=== PATIENT | female | born 1985 | race Two or more races ===

== ENCOUNTER 2016-09-03 12:19 | Emergency (ER) | payer OTHER ==
[~2016-09-03] VITALS: Ht 167.6 cm; Wt 108.0 kg
[~2016-09-03 12:19] MED LIST: NO REPORTABLE MEDS
[2016-09-03 12:38] VITALS: BP 146/99
== END 2016-09-03 14:00 | disposition home or self-care (01) ==
LOC: ER 12:21
DX: L03.211 Cellulitis of face (principal); J03.90 Acute tonsillitis, unspecified
CPT/HCPCS: 99283; A4606; Z7610

== ENCOUNTER 2016-11-13 18:14 | Emergency (ER) | payer OTHER ==
[~2016-11-13] VITALS: Ht 162.6 cm; Wt 112.0 kg
--- NOTE | 2016-11-13 18:20 | NUR ---
PT CAME IN FOR N/V, CHEST TIGHTNESS. DENIES FEVER, DIARRHEA. NAD NOTED. VSS. SEEN BY MD FOR EVAL. SAFETY AND COMFORT MEASURES PROVIDED. URINE SAMPLE OBTAINED. WILL MONITOR.
[2016-11-13 18:54] LABS: APPEARANCE,URINE Clear (CLEAR); BILIRUBIN,URINE Negative (NEGATIVE); BLOOD, URINE Negative Ery/uL (NEGATIVE); COLOR,URINE Yellow (YELLOW); KETONES,URINE Negative (NEGATIVE); LEUKOCYTE ESTERASE ,URINE Negative (NEGATIVE); NITRITE, URINE Negative (NEGATIVE); PH,URINE 5.5 (5.0-8.0); PROTEIN,URINE Trace mg/dl (NEGATIVE); UGLUCOSE Negative (NEGATIVE); UROBILINOGEN,URINE 0.2 EU/dL (0.2)
[2016-11-13] MEDS ORDERED: ONDANSETRON 4 MG TAB.RAPDIS SL ONE (19:00)
[2016-11-13 19:03] LABS: BASOPHILS % (AUTO) 0.5 % (0.0-2.0); EOSINOPHILS # (AUTO) 0.1 /CMM (0.0-0.7); HEMATOCRIT 39 % (33-45); HEMOGLOBIN 12.8 g/dL (11.5-14.8); LYMPHOCYTES # (AUTO) 2.5 /CMM (0.8-4.8); MEAN CORPUSCULAR HEMOGLOBIN 27 PG (26.0-33.0); MEAN CORPUSCULAR HGB CONC 33 g/dl (31.0-36.0); MEAN CORPUSCULAR VOLUME 81 fL (82-100); MONOCYTES # (AUTO) 0.4 /CMM (0.1-1.30); MONOCYTES % (AUTO) 4.2 % (2.0-12.0); NEUTROPHILS # (AUTO) 6.6 /CMM (1.8-8.9); NEUTROPHILS % (AUTO) 68.3 % (43.0-81.0); PLATELET COUNT (AUTO) 456 /CMM (150-450); RDW COEFFICIENT OF VARIATION 13.3 (11.5-15.0); RED BLOOD CELL COUNT(AUTO) 4.78 MIL/uL (4.0-5.2); WHITE BLOOD COUNT (AUTO) 9.6 K/uL (4.3-11.0)
--- NOTE | 2016-11-13 19:04 | NUR ---
SIENNA DONE AT BS.
[2016-11-13] MEDS ORDERED: ONDANSETRON 4 MG TAB.RAPDIS ONE (19:06)
[2016-11-13 19:07] LABS: PREGNANCY TEST URINE QUAL NEG (NEGATIVE)
[2016-11-13 19:13] LABS: ADD URINE CULTURE YES; BACTERIA,URINE Moderate /HPF (None Seen); RBC,URINE NONE SEEN /HPF (0-2); SQUAMOUS EPITHELIAL CELL,UR Many /HPF (None Seen); WBC,URINE 0-2 /HPF (0-3)
[2016-11-13 19:32] LABS: CALCIUM, SERUM 8.8 mg/dL (8.5-10.1); CREATININE 0.9 mg/dL (0.6-1.3); POTASSIUM 3.6 mmol/L (3.5-5.1)
[2016-11-13 19:37] LABS: ALBUMIN 3.6 g/dL (3.4-5.0); BILIRUBIN,DIRECT 0.1 mg/dL (0.0-0.2); BILIRUBIN,TOTAL 0.4 mg/dL (0.2-1.0); TOTAL PROTEIN, SERUM 7.1 g/dL (6.4-8.2)
[2016-11-13 19:47] VITALS: BP 136/88
--- NOTE | 2016-11-13 19:47 | NUR ---
Patient discharged to home in stable condition. Written and verbal after care instructions given. Patient verbalizes understanding of instruction. PT ambulatory with a steady gait VITAL SIGNS WITHIN NORMAL LIMITS.
== END 2016-11-13 19:48 | disposition home or self-care (01) ==
LOC: ER 18:16
DX: R11.2 Nausea with vomiting, unspecified (principal); F10.20 Alcohol dependence, uncomplicated
CPT/HCPCS: 36415; 76705; 80048; 80076; 81001; 83690; 84703; 85025; 87086; 99285; A4606; Q0162; Z7610; 81000-TC

== ENCOUNTER 2017-01-08 01:31 | Emergency (ER) | payer OTHER ==
[~2017-01-08] VITALS: Ht 162.6 cm; Wt 108.9 kg
--- NOTE | 2017-01-08 01:48 | NUR ---
31 YO FEMALE BB SLF. PT IS ALERT X 3, C/O RIGHT FLANK PAIN GOING DOWN TO LOWER ABD. PT STATES THE PAIN IS 10/10 STARTIGN THIS MORNING. URINE SAMPLE OBTAINED AND SENT TO LAB. PT URINE SAMPLE OBTAINED AND SENT TO LAB. PT GOWNED, PLACED ON ORCHESTRA MUSICIAN. KSIN WARM AND DR, RR EVEN AND UNLABORED. AWAITING ORDERS FROM PROVIDER
[2017-01-08] MEDS ORDERED: HYDROMORPHONE 1 MG/1 ML DISP.SYRIN ONE (02:11)
[2017-01-08] MEDS ORDERED: KETOROLAC TROMETHAMINE 15 MG/ML VIAL ONE (02:11)
[2017-01-08] MEDS ORDERED: ONDANSETRON HCL/PF 4 MG/2 ML VIAL ONE (02:11)
--- NOTE | 2017-01-08 02:26 | NUR ---
20G LEFT AC IV STARTED, BLOOD SAMPLE OBTAINED AND SENT TO LAB. MEDICATED PT ORDERED
[2017-01-08 02:27] LABS: BASOPHILS # (AUTO) 0.1 /CMM (0.0-0.2); BASOPHILS % (AUTO) 0.5 % (0.0-2.0); EOSINOPHILS # (AUTO) 0.1 /CMM (0.0-0.7); EOSINOPHILS % (AUTO) 0.9 % (0.0-6.0); HEMATOCRIT 39 % (33-45); HEMOGLOBIN 13.1 g/dL (11.5-14.8); LYMPHOCYTES % (AUTO) 19.9 % (20.0-44.0); MEAN CORPUSCULAR HEMOGLOBIN 28 PG (26.0-33.0); MEAN CORPUSCULAR HGB CONC 34 g/dl (31.0-36.0); MEAN CORPUSCULAR VOLUME 82 fL (82-100); MONOCYTES # (AUTO) 0.7 /CMM (0.1-1.30); MONOCYTES % (AUTO) 6.4 % (2.0-12.0); NEUTROPHILS # (AUTO) 7.4 /CMM (1.8-8.9); NEUTROPHILS % (AUTO) 72.3 % (43.0-81.0); PLATELET COUNT (AUTO) 441 /CMM (150-450); RDW COEFFICIENT OF VARIATION 13.8 (11.5-15.0); RED BLOOD CELL COUNT(AUTO) 4.75 MIL/uL (4.0-5.2); WHITE BLOOD COUNT (AUTO) 10.2 K/uL (4.3-11.0)
[2017-01-08 02:27] LABS: APPEARANCE,URINE CLEAR (CLEAR); BILIRUBIN,URINE NEGATIVE (NEGATIVE); BLOOD, URINE TRACE-INTA Ery/uL (NEGATIVE); COLOR,URINE YELLOW (YELLOW); KETONES,URINE NEGATIVE (NEGATIVE); LEUKOCYTE ESTERASE ,URINE NEGATIVE (NEGATIVE); NITRITE, URINE NEGATIVE (NEGATIVE); PH,URINE 6.5 (5.0-8.0); PROTEIN,URINE NEGATIVE (NEGATIVE); UGLUCOSE NEGATIVE (NEGATIVE); UROBILINOGEN,URINE 0.2 EU/dL (0.2)
[2017-01-08 02:29] LABS: PREGNANCY TEST URINE QUAL NEGATIVE (NEGATIVE)
[2017-01-08] MEDS ORDERED: HYDROMORPHONE INJ 2 MG/ML DISP.SYRIN IV ONE (02:30)
[2017-01-08] MEDS ORDERED: KETOROLAC TROMETHAMINE INJ 30 MG/ML VIAL IV ONE (02:30)
[2017-01-08] MEDS ORDERED: ONDANSETRON HCL/PF 4 MG/2 ML VIAL IVP ONE (02:30)
[2017-01-08] MEDS ORDERED: IV NS 0.9% 1,000 ML BAG IV ONE (02:30)
[2017-01-08 02:33] LABS: BACTERIA,URINE None seen /HPF (None Seen); RBC,URINE 0-2 /HPF (0-2); SQUAMOUS EPITHELIAL CELL,UR Rare /HPF (None Seen); WBC,URINE 0-2 /HPF (0-3)
[2017-01-08 02:37] LABS: CALCIUM, SERUM 8.9 mg/dL (8.5-10.1); POTASSIUM 3.8 mmol/L (3.5-5.1)
[2017-01-08 02:42] LABS: ALBUMIN 3.7 g/dL (3.4-5.0); BILIRUBIN,DIRECT 0.1 mg/dL (0.0-0.2); BILIRUBIN,TOTAL 0.3 mg/dL (0.2-1.0); TOTAL PROTEIN, SERUM 7.8 g/dL (6.4-8.2)
--- NOTE | 2017-01-08 03:17 | NUR ---
PT STATES SHE IS PAIN FREE AT THIS TIME. NOTIFED
[2017-01-08] MEDS ORDERED: AZITHROMYCIN 250 MG TABLET PO ONE (04:30)
[2017-01-08] MEDS ORDERED: AZITHROMYCIN 250 MG TABLET ONE (04:34)
[2017-01-08 04:46] VITALS: BP 129/90
--- NOTE | 2017-01-08 04:46 | NUR ---
Patient discharged to home in stable condition. Written and verbal after care instructions given. Patient verbalizes understanding of instruction. PT ambulatory with a steady gait VITAL SIGNS WITHIN NORMAL LIMITS.IV removed. Catheter intact and site benign. Pressure and 4x4 applied to site. No bleeding noted.
[2017-01-10 19:13] LABS: *NEISSERIA GONORRHOEAE NAA Negative (Negative); CHLAMYDIA TRACHOMATIS NAA Negative (Negative)
== END 2017-01-08 04:20 | disposition home or self-care (01) ==
LOC: ER 01:31
DX: M54.5 Low back pain (principal); R30.0 Dysuria; K21.9 Gastro-esophageal reflux disease without esophagitis; F10.20 Alcohol dependence, uncomplicated
CPT/HCPCS: 36415; 72128; 74176; 80048; 80076; 81001; 83690; 84703; 85025; 87491; 87591; 96361; 96374; 96375; 99285; A4606; J1170; J1885; J2405; J7030; J7040; Z7610; 81000-TC

== ENCOUNTER 2017-02-10 11:13 | Emergency (ER) | payer OTHER ==
[~2017-02-10] VITALS: Ht 162.6 cm; Wt 104.8 kg
[2017-02-10] MEDS ORDERED: IV NS 0.9% 1,000 ML BAG IV ONE (11:30)
[2017-02-10] MEDS ORDERED: SUMATRIPTAN SUCCINATE 6 MG/0.5 ML VIAL SQ ONE ×2 (11:30→11:34)
[2017-02-10] MEDS ORDERED: PROCHLORPERAZINE EDISYLATE 10 MG/2 ML VIAL IV ONE (11:30)
[2017-02-10] MEDS ORDERED: KETOROLAC TROMETHAMINE INJ 30 MG/ML VIAL IV ONE (11:30)
[2017-02-10] MEDS ORDERED: PROCHLORPERAZINE EDISYLATE 10 MG/2 ML VIAL ONE (11:34)
[2017-02-10] MEDS ORDERED: KETOROLAC TROMETHAMINE INJ 30 MG/ML VIAL ONE (11:34)
--- NOTE | 2017-02-10 11:37 | NUR ---
URINE SAMPLE COLLECTED SENT TO LAB
--- NOTE | 2017-02-10 11:40 | NUR ---
IV ACCESS STARTED. BLOOD DRAWN FOR LABS. PT MEDICATED ORDERED.
[2017-02-10 11:47] LABS: BASOPHILS % (AUTO) 0.4 % (0.0-2.0); EOSINOPHILS # (AUTO) 0.1 /CMM (0.0-0.7); EOSINOPHILS % (AUTO) 1.1 % (0.0-6.0); HEMATOCRIT 44 % (33-45); HEMOGLOBIN 14.5 g/dL (11.5-14.8); LYMPHOCYTES # (AUTO) 1.9 /CMM (0.8-4.8); LYMPHOCYTES % (AUTO) 22.3 % (20.0-44.0); MEAN CORPUSCULAR HEMOGLOBIN 27 PG (26.0-33.0); MEAN CORPUSCULAR HGB CONC 33 g/dl (31.0-36.0); MEAN CORPUSCULAR VOLUME 82 fL (82-100); MONOCYTES # (AUTO) 0.2 /CMM (0.1-1.30); MONOCYTES % (AUTO) 2.4 % (2.0-12.0); NEUTROPHILS # (AUTO) 6.5 /CMM (1.8-8.9); NEUTROPHILS % (AUTO) 73.8 % (43.0-81.0); PLATELET COUNT (AUTO) 429 /CMM (150-450); RDW COEFFICIENT OF VARIATION 12.8 (11.5-15.0); WHITE BLOOD COUNT (AUTO) 8.7 K/uL (4.3-11.0)
[2017-02-10 11:49] LABS: APPEARANCE,URINE Clear (CLEAR); BILIRUBIN,URINE Negative (NEGATIVE); BLOOD, URINE Negative Ery/uL (NEGATIVE); COLOR,URINE Yellow (YELLOW); KETONES,URINE Negative (NEGATIVE); LEUKOCYTE ESTERASE ,URINE Negative (NEGATIVE); NITRITE, URINE Negative (NEGATIVE); PH,URINE 6.5 (5.0-8.0); PROTEIN,URINE Negative (NEGATIVE); UGLUCOSE Negative (NEGATIVE); UROBILINOGEN,URINE 0.2 EU/dL (0.2)
[2017-02-10 11:58] LABS: CALCIUM, SERUM 8.8 mg/dL (8.5-10.1); CREATININE 0.8 mg/dL (0.6-1.3); POTASSIUM 4.1 mmol/L (3.5-5.1)
[2017-02-10 12:06] LABS: PREGNANCY TEST URINE QUAL NEGATIVE (NEGATIVE)
--- NOTE | 2017-02-10 12:29 | NUR ---
Patient discharged to home in stable condition. Written and verbal after care instructions given. Patient verbalizes understanding of instruction.
--- NOTE | 2017-02-10 12:29 | NUR ---
IV removed. Catheter intact and site benign. Pressure and 4x4 applied to site. No bleeding noted.
[2017-02-10 12:30] VITALS: BP 128/85
== END 2017-02-10 12:32 | disposition home or self-care (01) ==
LOC: ER 11:19
DX: R51 Headache (principal); K21.9 Gastro-esophageal reflux disease without esophagitis; Z87.440 Personal history of urinary (tract) infections
CPT/HCPCS: 36415; 80048; 81001; 84703; 85025; 96361; 96372; 96374; 96375; 99284; A4606; J0780; J1885; J3030; J7030; Z7610; 81000-TC

== ENCOUNTER 2017-03-27 14:43 | Emergency (ER) | payer SELFPAY ==
[~2017-03-27] VITALS: Ht 162.6 cm; Wt 105.7 kg
[2017-03-27 15:00] VITALS: BP 156/104
== END 2017-03-27 16:52 | disposition home or self-care (01) ==
LOC: ER 14:45
DX: S30.0XXA Contusion of lower back and pelvis, initial encounter (principal); K21.9 Gastro-esophageal reflux disease without esophagitis; X58.XXXA Exposure to other specified factors, initial encounter; Y92.89 Other specified places as the place of occurrence of the external cause; Y93.89 Activity, other specified; Y99.8 Other external cause status
CPT/HCPCS: 72220; 99284; A4606; Z7610

== ENCOUNTER 2017-05-20 16:29 | Emergency (ER) | payer SELFPAY ==
[~2017-05-20] VITALS: Ht 162.6 cm; Wt 108.9 kg
--- NOTE | 2017-05-20 17:15 | NUR ---
PRESENTS TO ER C/O ABD PAIN W/ NAUSEA, DIARRHEA, HEADACHE X 1 WK. A/OX 4. BREATHING EVEN AND UNLABORED. NO SOB. VITALS STABLE. SAFETY AND COMFORT MEASURES IN PLACE. AWAITING MD ORDERS.
--- NOTE | 2017-05-20 17:30 | NUR ---
AT BEDSIDE FOR EVAL.
--- NOTE | 2017-05-20 18:01 | NUR ---
CALLED US TECH ETA 30 MINUTES
--- NOTE | 2017-05-20 18:34 | NUR ---
US TECH AT BEDSIDE.
--- NOTE | 2017-05-20 19:15 | NUR ---
Patient discharged to home in stable condition. Written and verbal after care instructions given. Patient verbalizes understanding of instruction.
[2017-05-20 19:27] VITALS: BP 138/82
== END 2017-05-20 19:27 | disposition home or self-care (01) ==
LOC: ER 16:31
DX: R19.7 Diarrhea, unspecified (principal); R10.30 Lower abdominal pain, unspecified; M79.89 Other specified soft tissue disorders; K21.9 Gastro-esophageal reflux disease without esophagitis
CPT/HCPCS: 93971; 99284; A4606; Z7610

== ENCOUNTER 2018-10-05 20:18 | Emergency (ER) | payer OTHER ==
[~2018-10-05] VITALS: Ht 162.6 cm; Wt 117.9 kg
--- NOTE | 2018-10-05 20:30 | NUR ---
PT BIBSELF C/O PRODUCTIVE COUGH X1 WEEK. COUGH CAUSED 1 EPISODE OF VOMITTING YESTERDAY. DENIES FEVER, SOB, CHEST PAIN. PT AAOX4. RESPIRATIONS EVEN AND UNLABORED. SKIN WARM AND INTACT. NO ACUTE DISTRESS NOTED AT THIS TIME.
[2018-10-05] MEDS ORDERED: ONDANSETRON 4 MG TAB.RAPDIS ONE ×2 (21:20→21:23)
--- NOTE | 2018-10-05 21:20 | NUR ---
[employer] AT BEDSIDE FOR BLOOD DRAW
--- NOTE | 2018-10-05 21:21 | NUR ---
ZOFRAN ODT FELL ON FLOOR, GOT ANOTHER ZOFRAN ODT FROM [facility]
[2018-10-05] MEDS ORDERED: ONDANSETRON 4 MG TAB.RAPDIS SL ONE (21:30)
[2018-10-05] MEDS ORDERED: IPRATROPIUM NEB FS 0.5 MG/2.5 ML AMPUL.NEB NEB ONE (21:30)
[2018-10-05] MEDS ORDERED: ALBUTEROL FS 2.5 MG/3 ML VIAL.NEB NEB ONE (21:30)
[2018-10-05 21:31] LABS: BASOPHILS # (AUTO) 0.1 /CMM (0.0-0.2); BASOPHILS % (AUTO) 0.9 % (0.0-2.0); HEMATOCRIT 40 % (33-45); HEMOGLOBIN 13.6 g/dL (11.5-14.8); LYMPHOCYTES # (AUTO) 2.6 /CMM (0.8-4.8); LYMPHOCYTES % (AUTO) 23.1 % (20.0-44.0); MEAN CORPUSCULAR HGB CONC 34 g/dl (31.0-36.0); MEAN CORPUSCULAR VOLUME 81 fL (82-100); MONOCYTES # (AUTO) 0.4 /CMM (0.1-1.30); MONOCYTES % (AUTO) 3.7 % (2.0-12.0); NEUTROPHILS % (AUTO) 71.3 % (43.0-81.0); PLATELET COUNT (AUTO) 455 /CMM (150-450); RED BLOOD CELL COUNT(AUTO) 4.96 MIL/uL (4.0-5.2); WHITE BLOOD COUNT (AUTO) 11.2 K/uL (4.3-11.0)
--- NOTE | 2018-10-05 21:32 | NUR ---
RADIOLOGY AT BEDSIDE FOR CXR
[2018-10-05 21:41] LABS: CALCIUM, SERUM 8.8 mg/dL (8.5-10.1); CREATININE 1.2 mg/dL (0.6-1.3); POTASSIUM 3.6 mmol/L (3.5-5.1)
[2018-10-05] MEDS ORDERED: ALBUTEROL FS 2.5 MG/3 ML VIAL.NEB ONE (21:46)
[2018-10-05] MEDS ORDERED: IPRATROPIUM NEB FS 0.5 MG/2.5 ML AMPUL.NEB ONE (21:46)
--- NOTE | 2018-10-05 21:50 | NUR ---
RT AT BEDSIDE
--- NOTE | 2018-10-05 22:33 | NUR ---
Patient discharged to home in stable condition. Written and verbal after care instructions given. Patient verbalizes understanding of instruction. Pt ambulatory with a steady gait
[2018-10-05 22:35] VITALS: BP 139/89
== END 2018-10-05 22:36 | disposition home or self-care (01) ==
LOC: ER 20:21
DX: J06.9 Acute upper respiratory infection, unspecified (principal); R07.89 Other chest pain; K21.9 Gastro-esophageal reflux disease without esophagitis; E11.9 Type 2 diabetes mellitus without complications; F10.10 Alcohol abuse, uncomplicated; R00.0 Tachycardia, unspecified; Y90.9 Presence of alcohol in blood, level not specified
CPT/HCPCS: 36415; 71045; 80048; 85025; 85378; 93005 ×2; 94640; 99284; Q0162 ×2

== ENCOUNTER 2018-12-24 22:46 | Emergency (ER) | payer MEDICAID, OTHER ==
--- NOTE | 2018-12-25 00:14 | NUR ---
CALLED PT THREE TIMES IN WAITING ROOM. NO RESPONSE.
--- NOTE | 2018-12-25 00:29 | NUR ---
CALLED PT NAME IN WR, NO ONE ANSWERED. PER ADMITTING PT LEFT.
== END 2018-12-25 00:31 | disposition left against medical advice (07) ==
LOC: ER 22:50
DX: Z53.21 Procedure and treatment not carried out due to patient leaving prior to being seen by health care provider (principal)

== ENCOUNTER 2019-05-27 19:33 | Emergency (ER) | payer MEDICAID, OTHER ==
[~2019-05-27] VITALS: Ht 165.1 cm; Wt 120.2 kg
[2019-05-27 20:33] LABS: BASOPHILS % (AUTO) 0.3 % (0.0-2.0); EOSINOPHILS % (AUTO) 0.5 % (0.0-6.0); HEMATOCRIT 40 % (33-45); LYMPHOCYTES # (AUTO) 1.9 /CMM (0.8-4.8); LYMPHOCYTES % (AUTO) 16.4 % (20.0-44.0); MEAN CORPUSCULAR HGB CONC 32 g/dl (31.0-36.0); MEAN CORPUSCULAR VOLUME 80 fL (82-100); MONOCYTES # (AUTO) 0.5 /CMM (0.1-1.30); MONOCYTES % (AUTO) 4.6 % (2.0-12.0); NEUTROPHILS % (AUTO) 78.2 % (43.0-81.0); PLATELET COUNT (AUTO) 434 /CMM (150-450); WHITE BLOOD COUNT (AUTO) 11.6 K/uL (4.3-11.0)
--- NOTE | 2019-05-27 20:33 | NUR ---
BIBSELF FROM HOME TO ER BED 9. AAOX4. NO RESP DISTRESS NOTED. AMBULATORY. C/O LUQ ABDOMINAL PAIN RADIATING TO RUQ. PT REPORTS THE PAIN STARTED THIS MORNIGN AT 10AM. PAIN IS REPORTED /. SHARP AND TIGHT FEELING. PT DENIES NAUSEA AND VOMMITING BUT REPORTS DIARRHEA X 8 EPISODE SINCE YESTERDAY. MD AT BEDSIDE FOR EVAL. ORDERS RECEIVED, NOTED AND CARRIED OUT
[2019-05-27] MEDS ORDERED: ONDANSETRON HCL/PF 4 MG/2 ML VIAL ONE (20:46)
[2019-05-27] MEDS ORDERED: MORPHINE SULFATE INJ 2 MG/ML DISP.SYRIN ONE (20:47)
[2019-05-27] MEDS: MORPHINE SULFATE INJ 2 MG/ML DISP.SYRIN IV ONE (20:54)
[2019-05-27] MEDS: ONDANSETRON HCL/PF - ER 4 MG/2 ML VIAL IV ONE (20:54)
[2019-05-27 21:15] LABS: ALBUMIN 3.6 g/dL (3.4-5.0); BILIRUBIN,DIRECT 0.1 mg/dL (0.0-0.2); BILIRUBIN,TOTAL 0.6 mg/dL (0.2-1.0); CALCIUM, SERUM 9.8 mg/dL (8.5-10.1); CREATININE 0.9 mg/dL (0.6-1.3); POTASSIUM 4.6 mmol/L (3.5-5.1)
[2019-05-27 21:39] LABS: APPEARANCE,URINE Clear (CLEAR); BILIRUBIN,URINE Negative (NEGATIVE); BLOOD, URINE Negative Ery/uL (NEGATIVE); COLOR,URINE Yellow (YELLOW); KETONES,URINE Negative (NEGATIVE); LEUKOCYTE ESTERASE ,URINE Negative (NEGATIVE); NITRITE, URINE Negative (NEGATIVE); PROTEIN,URINE Negative (NEGATIVE); UGLUCOSE Negative (NEGATIVE); UROBILINOGEN,URINE 0.2 EU/dL (0.2)
[2019-05-27 22:03] VITALS: BP 141/85
--- NOTE | 2019-05-27 22:03 | NUR ---
Patient discharged to home in stable condition. Written and verbal after care instructions given. Patient verbalizes understanding of instruction.IV removed. Catheter intact and site benign. Pressure and 4x4 applied to site. No bleeding noted. Pt ambulatory with a steady gait
== END 2019-05-27 22:06 | disposition home or self-care (01) ==
LOC: ER 19:38
DX: R10.11 Right upper quadrant pain (principal); R10.13 Epigastric pain; R19.7 Diarrhea, unspecified; E03.9 Hypothyroidism, unspecified; K21.9 Gastro-esophageal reflux disease without esophagitis; E11.9 Type 2 diabetes mellitus without complications; Z98.890 Other specified postprocedural states
CPT/HCPCS: 36415; 76705; 80048; 80076; 81001; 83690; 85025; 96374; 96375; 99284; J2270; J2405; 81000-TC

== ENCOUNTER 2019-07-25 16:14 | Emergency (ER) | payer OTHER ==
[~2019-07-25] VITALS: Ht 165.1 cm; Wt 115.7 kg
[2019-07-25 16:40] VITALS: BP 146/87
[2019-07-25] MEDS ORDERED: ACETAMINOPHEN 325 MG TABLET PO ONE (17:00)
[2019-07-25] MEDS ORDERED: IBUPROFEN 600 MG TABLET PO ONE ×2 (17:00→17:18)
[2019-07-25] MEDS ORDERED: ACETAMINOPHEN 325 MG TABLET ONE (17:18)
--- NOTE | 2019-07-25 18:28 | NUR ---
ORAL TEMP RECHECK 98.5
== END 2019-07-25 19:49 | disposition home or self-care (01) ==
LOC: ER 16:16
DX: R05 Cough (principal); R09.81 Nasal congestion; R07.89 Other chest pain; R51 Headache; J02.9 Acute pharyngitis, unspecified; K21.9 Gastro-esophageal reflux disease without esophagitis; E11.9 Type 2 diabetes mellitus without complications; E03.9 Hypothyroidism, unspecified; Z98.890 Other specified postprocedural states
CPT/HCPCS: 71045-TC

== ENCOUNTER 2023-09-21 02:31 | Emergency (ER) | payer SELFPAY ==
[~2023-09-21] VITALS: Ht 167.6 cm; Wt 81.6 kg
[2023-09-21] MEDS ORDERED: methylPREDNISolone SOD SUCC 125 MG/2ML VIAL ONE (03:15)
[2023-09-21] MEDS ORDERED: KETOROLAC TROMETHAMINE INJ 30 MG/ML VIAL ONE (03:15)
[2023-09-21] MEDS ORDERED: CYCLOBENZAPRINE 10 MG TABLET ONE (03:16)
[2023-09-21 03:27] LABS: BASOPHILS # (AUTO) 0.1 K/uL (0.0-0.2); BASOPHILS % (AUTO) 0.6 % (0.0-2.0); EOSINOPHILS # (AUTO) 0.1 K/uL (0.0-0.7); EOSINOPHILS % (AUTO) 0.7 % (0.0-6.0); HEMATOCRIT 42 % (33-45); HEMOGLOBIN 13.9 g/dL (11.5-14.8); LYMPHOCYTES # (AUTO) 2.8 K/uL (0.8-4.8); LYMPHOCYTES % (AUTO) 30.4 % (20.0-44.0); MEAN CORPUSCULAR HEMOGLOBIN 26 PG (26.0-33.0); MEAN CORPUSCULAR HGB CONC 33 g/dl (31.0-36.0); MEAN CORPUSCULAR VOLUME 80 fL (82-100); MONOCYTES # (AUTO) 0.4 K/uL (0.1-1.30); MONOCYTES % (AUTO) 4.9 % (2.0-12.0); NEUTROPHILS # (AUTO) 5.8 K/uL (1.8-8.9); NEUTROPHILS % (AUTO) 63.4 % (43.0-81.0); PLATELET COUNT (AUTO) 422 K/uL (150-450); RED BLOOD CELL COUNT(AUTO) 5.31 MIL/uL (4.0-5.2); RED CELL DISTRIBUTION WIDTH 14.8 % (11.5-15.0); WHITE BLOOD COUNT (AUTO) 9.1 K/uL (4.3-11.0)
[2023-09-21] MEDS: methylPREDNISolone SOD SUCC 125 MG/2ML VIAL IV ONE (03:33)
[2023-09-21] MEDS: CYCLOBENZAPRINE 10 MG TABLET PO ONE (03:33)
[2023-09-21] MEDS: KETOROLAC TROMETHAMINE INJ 30 MG/ML VIAL IV ONE (03:33)
[2023-09-21 03:36] LABS: PREGNANCY TEST URINE QUAL NEGATIVE (NEGATIVE)
[2023-09-21 03:36] LABS: CALCIUM, SERUM 8.9 mg/dL (8.5-10.1); CARBON DIOXIDE 28 mmol/L (21-32); CHLORIDE 103 mmol/L (98-107); GLUCOSE 104 mg/dL (74-106); POTASSIUM 3.5 mmol/L (3.5-5.1); SODIUM SERUM 136 mmol/L (136-145); UREA NITROGEN, BLOOD 13 mg/dL (7-18)
[2023-09-21 03:42] LABS: ALANINE AMINOTRANSFERASE 17 U/L (12-78); ALBUMIN 3.8 g/dL (3.4-5.0); ALKALINE PHOSPHATASE 61 U/L (46-116); ASPARTATE AMINOTRANSFERASE 10 U/L (15-37); BILIRUBIN,DIRECT 0.1 mg/dL (0.0-0.2); BILIRUBIN,TOTAL 0.5 mg/dL (0.2-1.0); TOTAL PROTEIN, SERUM 7.8 g/dL (6.4-8.2)
[2023-09-21 03:44] LABS: PARTIAL THROMBOPLASTIN TIME 31.8 SEC (24.3-34.3); PROTHROMBIN TIME 10.6 SECS (9.2-11.1)
[2023-09-21] MEDS ORDERED: IBUP-1957 PO (05:51)
[2023-09-21] MEDS ORDERED: CYCL10TA9 PO (05:51)
[2023-09-21] MEDS ORDERED: PRED50TA PO (05:51)
[2023-09-21 06:04] VITALS: BP 155/99; TEMP 98.3; O2SAT 97
== END 2023-09-21 06:05 | disposition home or self-care (01) ==
LOC: ER 02:45
DX: R07.89 Other chest pain (principal); M54.12 Radiculopathy, cervical region; M62.838 Other muscle spasm; E11.9 Type 2 diabetes mellitus without complications; E03.9 Hypothyroidism, unspecified; K21.9 Gastro-esophageal reflux disease without esophagitis; Z79.899 Other long term (current) drug therapy
CPT/HCPCS: 99285; 96374; 71045; 96375; 93005; 85025; 80048; 80076; 84703; 36415; 84484 ×2; 85730; J2930; J1885

== ENCOUNTER 2024-01-13 17:04 | Emergency (ER) | payer OTHER ==
[~2024-01-13] VITALS: Ht 167.6 cm; Wt 77.1 kg
[~2024-01-13 17:04] MED LIST changes: +CYCL10TA9 PO; +IBUP-1957 PO; +PRED50TA PO
[2024-01-13 17:51] LABS: BASOPHILS % (AUTO) 0.9 % (0.0-2.0); EOSINOPHILS # (AUTO) 0.1 K/uL (0.0-0.7); EOSINOPHILS % (AUTO) 1.2 % (0.0-6.0); HEMATOCRIT 40 % (33-45); HEMOGLOBIN 13.2 g/dL (11.5-14.8); LYMPHOCYTES # (AUTO) 0.7 K/uL (0.8-4.8); LYMPHOCYTES % (AUTO) 15.5 % (20.0-44.0); MEAN CORPUSCULAR HEMOGLOBIN 27 PG (26.0-33.0); MEAN CORPUSCULAR HGB CONC 33 g/dl (31.0-36.0); MEAN CORPUSCULAR VOLUME 80 fL (82-100); MONOCYTES # (AUTO) 0.5 K/uL (0.1-1.30); NEUTROPHILS # (AUTO) 3.2 K/uL (1.8-8.9); NEUTROPHILS % (AUTO) 71.4 % (43.0-81.0); PLATELET COUNT (AUTO) 317 K/uL (150-450); RED BLOOD CELL COUNT(AUTO) 4.94 MIL/uL (4.0-5.2); RED CELL DISTRIBUTION WIDTH 13.9 % (11.5-15.0); WHITE BLOOD COUNT (AUTO) 4.5 K/uL (4.3-11.0)
[2024-01-13 17:59] LABS: CALCIUM, SERUM 8.8 mg/dL (8.5-10.1); CARBON DIOXIDE 26 mmol/L (21-32); CHLORIDE 105 mmol/L (98-107); GLUCOSE 90 mg/dL (74-106); POTASSIUM 3.5 mmol/L (3.5-5.1); SODIUM SERUM 136 mmol/L (136-145); UREA NITROGEN, BLOOD 11 mg/dL (7-18)
[2024-01-13] MEDS ORDERED: ACETAMINOPHEN 325 MG TABLET ONE (18:49)
[2024-01-13] MEDS: ACETAMINOPHEN 325 MG TABLET PO ONE (18:58)
[2024-01-13] MEDS ORDERED: BENZ-13 PO (20:05)
[2024-01-13 20:13] VITALS: BP 140/99; TEMP 98.1; O2SAT 96
== END 2024-01-13 20:14 | disposition home or self-care (01) ==
LOC: ER 17:04
DX: J06.9 Acute upper respiratory infection, unspecified (principal); R05.9 Cough, unspecified; K21.9 Gastro-esophageal reflux disease without esophagitis; Z87.440 Personal history of urinary (tract) infections; E11.9 Type 2 diabetes mellitus without complications; E03.9 Hypothyroidism, unspecified; Z98.890 Other specified postprocedural states; Z79.1 Long term (current) use of non-steroidal anti-inflammatories (NSAID); Z79.52 Long term (current) use of systemic steroids; Z20.822 Contact with and (suspected) exposure to COVID-19
CPT/HCPCS: 36415; 71045-TC; 80048-TC; 84484-TC; 85025-TC

== ENCOUNTER 2024-03-04 08:49 | Emergency (ER) | payer OTHER ==
[~2024-03-04] VITALS: Ht 167.6 cm; Wt 77.1 kg
[~2024-03-04 08:49] MED LIST changes: +BENZ-13 PO
[2024-03-04 09:10] VITALS: TEMP 98.6
[2024-03-04 09:29] LABS: BASOPHILS % (AUTO) 0.1 % (0.0-2.0); EOSINOPHILS % (AUTO) 0.1 % (0.0-6.0); HEMATOCRIT 42 % (33-45); HEMOGLOBIN 13.8 g/dL (11.5-14.8); LYMPHOCYTES # (AUTO) 0.5 K/uL (0.8-4.8); LYMPHOCYTES % (AUTO) 4.8 % (20.0-44.0); MEAN CORPUSCULAR HEMOGLOBIN 27 PG (26.0-33.0); MEAN CORPUSCULAR HGB CONC 33 g/dl (31.0-36.0); MEAN CORPUSCULAR VOLUME 81 fL (82-100); MONOCYTES # (AUTO) 0.4 K/uL (0.1-1.30); MONOCYTES % (AUTO) 3.5 % (2.0-12.0); NEUTROPHILS # (AUTO) 9.2 K/uL (1.8-8.9); NEUTROPHILS % (AUTO) 91.5 % (43.0-81.0); PLATELET COUNT (AUTO) 317 K/uL (150-450); RED BLOOD CELL COUNT(AUTO) 5.14 MIL/uL (4.0-5.2); RED CELL DISTRIBUTION WIDTH 13.9 % (11.5-15.0); WHITE BLOOD COUNT (AUTO) 10.1 K/uL (4.3-11.0)
[2024-03-04 09:36] LABS: CALCIUM, SERUM 8.8 mg/dL (8.5-10.1); CARBON DIOXIDE 25 mmol/L (21-32); CHLORIDE 101 mmol/L (98-107); CREATININE 0.9 mg/dL (0.6-1.3); GLUCOSE 105 mg/dL (74-106); POTASSIUM 3.6 mmol/L (3.5-5.1); SODIUM SERUM 136 mmol/L (136-145); UREA NITROGEN, BLOOD 9 mg/dL (7-18)
[2024-03-04] MEDS: KETOROLAC TROMETHAMINE 15 MG/ML VIAL IV ONE (10:30)
[2024-03-04] MEDS ORDERED: KETOROLAC TROMETHAMINE 15 MG/ML VIAL ONE (10:31)
[2024-03-04] MEDS ORDERED: ACETAMINOPHEN 325 MG TABLET ONE (10:31)
[2024-03-04] MEDS: IV NS 0.9% 1,000 ML BAG IV ONE (10:37)
[2024-03-04] MEDS: ACETAMINOPHEN 325 MG TABLET PO ONE (10:38)
[2024-03-04] MEDS ORDERED: MAG HYDROX/AL HYDROX/SIMETH 30 ML UDC ONE (10:49)
[2024-03-04] MEDS ORDERED: ONDANSETRON HCL/PF 4 MG/2 ML VIAL ONE (10:49)
[2024-03-04] MEDS ORDERED: LIDOCAINE VISCOUS 2% UD 15 ML UDC ONE (10:49)
[2024-03-04] MEDS ORDERED: FAMOTIDINE/PF INJ 20 MG/2 ML VIAL IV ONE (10:50)
[2024-03-04 10:56] LABS: ALBUMIN 3.5 g/dL (3.4-5.0); BILIRUBIN,DIRECT 0.1 mg/dL (0.0-0.2); BILIRUBIN,TOTAL 0.7 mg/dL (0.2-1.0); TOTAL PROTEIN, SERUM 7.3 g/dL (6.4-8.2)
[2024-03-04] MEDS: ONDANSETRON HCL/PF 4 MG/2 ML VIAL IVP ONE (11:00)
[2024-03-04] MEDS: FAMOTIDINE/PF INJ 20 MG/2 ML VIAL IV ONE (11:02)
[2024-03-04] MEDS: LIDOCAINE VISCOUS 2% UD 15 ML UDC MM ONE (11:05)
[2024-03-04] MEDS: MAG HYDROX/AL HYDROX/SIMETH 30 ML UDC PO ONE (11:05)
[2024-03-04 11:06] LABS: THYROID STIMULATING HORMONE 1.25 uIU/mL (0.358-3.74)
[2024-03-04] MEDS ORDERED: IBUP-1955 PO (11:10)
[2024-03-04 11:36] VITALS: BP 138/79; O2SAT 100
== END 2024-03-04 11:37 | disposition home or self-care (01) ==
LOC: ER 08:51
DX: K80.20 Calculus of gallbladder without cholecystitis without obstruction (principal); R19.7 Diarrhea, unspecified; Z98.890 Other specified postprocedural states
CPT/HCPCS: 99285; 96374; 76705; 96375; 71045; 96361; 93005; 85025; 80048; 83690; 80076; 36415; 84443; 84484; J3490; J2405; J7030; J1885